=== PATIENT | female | born 1950 | race Caucasian/White ===

== ENCOUNTER 2016-06-20 05:58 | Inpatient (IN) | payer MEDICARE, OTHER ==
[2016-05-30 08:20] VITALS: Ht 162.6 cm; Wt 79.3 kg
[2016-05-30 09:37] VITALS: BP_SYST 122; RESP 20; TEMP 97.8
[2016-06-20] VITALS (34 sets, daily range): BP systolic 110–147; RESP 14–20; TEMP 97–98.5
[~2016-06-20] VITALS: Ht 162.6 cm; Wt 79.3 kg
[2016-06-20] MEDS ORDERED: ROPIVACAINE 0.5% 139 MG, EPINEPHrine 1:1,000 0.2 MG, KETOROLAC INJ 30 MG, MORPHINE 10 MG SUBQ ONE ×4 (06:05)
[2016-06-20] MEDS ORDERED: CEFAZOLIN 2,000 MG in SODIUM CHLORIDE 0.9% 100 ML IV ONE (06:05)
[2016-06-20] MEDS ORDERED: ONDANSETRON 4 MG VIAL IV ONE (07:20)
[2016-06-20] MEDS ORDERED: GLYCOPYRROLATE 0.2 MG/ML VIAL IV ONE ×2 (07:20→09:43)
[2016-06-20] MEDS ORDERED: LIDOCAINE 1% BUFFERED 1 ML SYR INTRADERM PRN (07:20)
[2016-06-20] MEDS ORDERED: LACT RINGERS 1,000 ML IV SCH (07:20)
[2016-06-20] MEDS ORDERED: DEXAMETHASONE 4 MG/ML VIAL IV ONE (07:20)
[2016-06-20] MEDS ORDERED: MIDAZOLAM 2 MG/2 ML INJ IV ONE (07:20)
[2016-06-20] MEDS ORDERED: MORPHINE 2 MG/ML SYR IV PRN ×2 (09:40→10:40)
[2016-06-20] MEDS ORDERED: ONDANSETRON 4 MG VIAL IV PRN ×2 (09:40→10:40)
[2016-06-20] MEDS ORDERED: DILAUDID 1 MG/ML AMP IV PRN (09:40)
[2016-06-20] MEDS ORDERED: MEPERIDINE 25 MG/ML IV PRN (09:40)
[2016-06-20] MEDS ORDERED: MORPHINE 4 MG/ML SYR IV PRN ×2 (09:40→10:40)
[2016-06-20] MEDS ORDERED: OXYCODONE 5 MG TAB PO PRN (09:40)
[2016-06-20] MEDS ORDERED: PROPOFOL 20 ML PER ML IV ONE (09:43)
[2016-06-20] MEDS ORDERED: ONDANSETRON 4 MG VIAL IV PUSH ONE (09:43)
[2016-06-20] MEDS ORDERED: NEOSTIGMINE 10 MG/10 ML VIAL IV ONE (09:43)
[2016-06-20] MEDS ORDERED: FENTANYL 100 MCG/2 ML AMP IV ONE (09:43)
[2016-06-20] MEDS ORDERED: ROPIVACAINE 5 MG/ML 30 ML EPIDURAL ONE (10:05)
[2016-06-20] MEDS ORDERED: MAG HYDROX 30 ML UDC PO PRN (10:40)
[2016-06-20] MEDS ORDERED: SALINE FLUSH 10 ML FLUSH PRN (10:40)
[2016-06-20] MEDS ORDERED: ONDANSETRON 4 MG TAB PO PRN (10:40)
[2016-06-20] MEDS ORDERED: ZOLPIDEM 5 MG TAB PO PRN (10:40)
[2016-06-20] MEDS: KETOROLAC 30 MG/ML VIAL IV PRN ×2 (12:24→21:13)
[2016-06-20] MEDS ORDERED: BACITRACIN 50,000 UNITS INJ IRRIG ONE (13:39)
[2016-06-20] MEDS ORDERED: ALPRAZOLAM 0.25 MG TAB PO PRN (14:30)
[2016-06-20] MEDS: ESTROGENS CONJ PO SCH (14:32)
[2016-06-20] MEDS: METOPROLOL TART 25 MG TAB PO SCH ×2 (14:32→21:11)
[2016-06-20] MEDS: VENLAFAXINE XR 150 MG CAP PO SCH (14:33)
[2016-06-20] MEDS: D5-1/2-NS W/KCL 20MEQ/L 1,000 ML IV SCH (14:35)
[2016-06-20] MEDS: CEFAZOLIN 2,000 MG in SODIUM CHLORIDE 0.9% 100 ML IV SCH ×2 (14:36→21:12)
[2016-06-20] MEDS ORDERED: Meclizine HCl 25 MG TAB PO PRN (19:15)
[2016-06-20] MEDS: SALINE FLUSH 10 ML FLUSH SCH (20:00)
[2016-06-20] MEDS ORDERED: DOCUSATE SOD 100 MG CAP PO SCH (21:00)
[2016-06-20] MEDS: PANTOPRAZOLE 40 MG TAB PO SCH (21:10)
[2016-06-20] MEDS: DOCUSATE SOD 100 MG CAP PO SCH (21:11)
[2016-06-20] MEDS: Atorvastatin 20 MG TAB PO SCH (21:11)
[2016-06-20] MEDS: Meclizine HCl 25 MG TAB PO PRN (21:11)
[2016-06-21] VITALS (9 sets, daily range): BP systolic 111–132; RESP 18–20; TEMP 97.3–99
[2016-06-21] MEDS: D5-1/2-NS W/KCL 20MEQ/L 1,000 ML IV SCH (03:03)
[2016-06-21] MEDS: CEFAZOLIN 2,000 MG in SODIUM CHLORIDE 0.9% 100 ML IV SCH ×2 (03:05→08:35)
[2016-06-21] MEDS: KETOROLAC 30 MG/ML VIAL IV PRN ×3 (03:17→16:35)
[2016-06-21] MEDS: SODIUM CHLORIDE 0.9% FLUSH BAG 500 ML IV SCH (06:00)
[2016-06-21] MEDS: FONDAPARINUX 2.5 MG SYR SUBQ SCH (06:10)
[2016-06-21] MEDS: ESTROGENS CONJ PO SCH (08:33)
[2016-06-21] MEDS: MULTIVITS/MINERALS (THERAGRAN M) TAB PO SCH (08:34)
[2016-06-21] MEDS: SALINE FLUSH 10 ML FLUSH SCH ×2 (08:34→20:00)
[2016-06-21] MEDS: DOCUSATE SOD 100 MG CAP PO SCH ×2 (08:34→20:29)
[2016-06-21] MEDS: POLYETHYLENE GLYCOL 17 GM PACKET PO SCH (08:34)
[2016-06-21] MEDS: METOPROLOL TART 25 MG TAB PO SCH ×2 (08:34→20:29)
[2016-06-21] MEDS: VENLAFAXINE XR 150 MG CAP PO SCH (08:34)
[2016-06-21] MEDS: SENNA 8.6 MG TAB PO SCH ×2 (08:34→20:28)
[2016-06-21] MEDS ORDERED: MAG HYDROX 30 ML UDC PO SCH (09:00)
[2016-06-21] MEDS: Meclizine HCl 25 MG TAB PO PRN ×2 (09:08→20:30)
[2016-06-21] MEDS ORDERED: BISACODYL 10 MG SUPP RECTAL PRN (11:40)
[2016-06-21] MEDS ORDERED: FLEET ENEMA 132 ML BTL RECTAL PRN (11:40)
[2016-06-21] MEDS: Atorvastatin 20 MG TAB PO SCH (20:28)
[2016-06-21] MEDS: PANTOPRAZOLE 40 MG TAB PO SCH (20:28)
[2016-06-21] MEDS: SODIUM CHLORIDE 0.45% 1,000 ML IV SCH (20:28)
[2016-06-21] MEDS: MAG HYDROX 30 ML UDC PO SCH (20:29)
[2016-06-22] VITALS (7 sets, daily range): BP systolic 112–133; RESP 16–20; TEMP 97.5–98.3
[2016-06-22] MEDS: SODIUM CHLORIDE 0.9% FLUSH BAG 500 ML IV SCH (05:06)
[2016-06-22] MEDS: FONDAPARINUX 2.5 MG SYR SUBQ SCH (05:07)
[2016-06-22] MEDS: SODIUM CHLORIDE 0.45% 1,000 ML IV SCH (05:08)
[2016-06-22] MEDS: SALINE FLUSH 10 ML FLUSH SCH ×2 (07:47→21:18)
[2016-06-22] MEDS: MULTIVITS/MINERALS (THERAGRAN M) TAB PO SCH (09:24)
[2016-06-22] MEDS: POLYETHYLENE GLYCOL 17 GM PACKET PO SCH (09:24)
[2016-06-22] MEDS: MAG HYDROX 30 ML UDC PO SCH ×2 (09:24→19:24)
[2016-06-22] MEDS: Meclizine HCl 25 MG TAB PO PRN (09:24)
[2016-06-22] MEDS: SENNA 8.6 MG TAB PO SCH ×3 (09:25→21:18)
[2016-06-22] MEDS: DOCUSATE SOD 100 MG CAP PO SCH ×2 (09:25→21:18)
[2016-06-22] MEDS: ESTROGENS CONJ PO SCH (09:25)
[2016-06-22] MEDS: METOPROLOL TART 25 MG TAB PO SCH ×2 (09:25→21:18)
[2016-06-22] MEDS: VENLAFAXINE XR 150 MG CAP PO SCH (09:25)
[2016-06-22] MEDS: Atorvastatin 20 MG TAB PO SCH (21:17)
[2016-06-22] MEDS: PANTOPRAZOLE 40 MG TAB PO SCH (21:17)
[2016-06-23 04:10] VITALS: BP_SYST 119; RESP 18; TEMP 98
[2016-06-23] MEDS: SODIUM CHLORIDE 0.9% FLUSH BAG 500 ML IV SCH (06:00)
[2016-06-23] MEDS: FONDAPARINUX 2.5 MG SYR SUBQ SCH (06:02)
[2016-06-23 07:44] VITALS: BP_SYST 122; RESP 18; TEMP 98
[2016-06-23] MEDS: MAG HYDROX 30 ML UDC PO SCH (07:51)
[2016-06-23] MEDS: POLYETHYLENE GLYCOL 17 GM PACKET PO SCH (07:51)
[2016-06-23] MEDS: VENLAFAXINE XR 150 MG CAP PO SCH (08:01)
[2016-06-23] MEDS: MULTIVITS/MINERALS (THERAGRAN M) TAB PO SCH (08:01)
[2016-06-23] MEDS: DOCUSATE SOD 100 MG CAP PO SCH (08:01)
[2016-06-23] MEDS: ESTROGENS CONJ PO SCH (08:01)
[2016-06-23] MEDS: SALINE FLUSH 10 ML FLUSH SCH (08:01)
[2016-06-23] MEDS: METOPROLOL TART 25 MG TAB PO SCH (08:01)
[2016-06-23] MEDS: SENNA 8.6 MG TAB PO SCH (08:01)
[2016-06-23] MEDS ORDERED: MISSING DOSE XX ONE (08:50)
[2016-06-23] MEDS: Meclizine HCl 25 MG TAB PO PRN (09:12)
[2016-06-23 10:59] VITALS: BP_SYST 122; RESP 18; TEMP 98
== END 2016-06-23 12:08 | disposition home or self-care (01) | DRG 470 ==
LOC: ENRESERVTM → ENRESERVDT → ENPENDDIS 05:58 → SDS 05:58 → 2NO 10:47
PROVIDERS: ADMIT Internal Medicine; ATTEND Internal Medicine
PROC: 0SRC0J9 Replacement of Right Knee Joint with Synthetic Substitute, Cemented, Open Approach (ICD-10-PCS; 2016-06-20)
PROC: 3E0T3BZ Introduction of Anesthetic Agent into Peripheral Nerves and Plexi, Percutaneous Approach (ICD-10-PCS; principal; 2016-06-20 07:42)
CPT/HCPCS: 80048; 85014; 85018; 85025; 86850; 86900; 86901; 94762; 94799